=== PATIENT | female | born 1955 | race Caucasian/White ===

== ENCOUNTER 2016-10-04 21:52 | Emergency (ER) | payer OTHER ==
[~2016-10-04] VITALS: Ht 162.6 cm; Wt 81.6 kg
[~2016-10-04 21:52] MED LIST: CITA20TA5 PO; CYCL10TA2 PO; HYDR-2672 PO; HYDR-2762 PO; HYDR-2868 PO; HYDR25TA PO; METH-37 PO; NAPR500T8 PO; OMEP1CAP24 PO; OMEP20CA9 PO; TIZA4TAB PO
[2016-10-04] MEDS ORDERED: SMZ/TMP 800/160MG TABLET. PO ONE (23:45)
[2016-10-05] MEDS ORDERED: SULF1TAB24 PO (00:02)
--- NOTE | 2016-10-05 00:02 | PHYS DOC ---
Past Medical History Past Medical History: Bronchitis, Depression, GERD, Other Additional Past Medical Histor: back problems, CATARACTS, ULCERS, DDD Past Surgical History: Appendectomy, Hysterectomy, Other Additional Past Surgical Histo: Carpal tunnel, D&C, left foot surgery Alcohol Use: None Drug Use: None Adult General Chief Complaint Chief Complaint: LOWEREXTREMITY INJURY HPI HPI Patient is a 60 year old female who presents to the ER today secondary to redness and swelling to her left lower extremity. Patient reports on Wednesday her grandson jumped on her foot and she reports that he was having discomfort in that area. Patient reports approximately one day after the injury she noticed redness and streaking in her left pretibial region. Patient denies any other symptomatology at this time. Patient has any fevers shaking chills nausea vomiting diarrhea. Patient reports she has no history of hypertension diabetes liver longer kidney problems. Patient does not smoke or drink. Patient reports she is allergic to penicillin and Neosporin. Patient's physical exam was significant for redness and warmth and tenderness to her pretibial region. There was no bony deformity. There was no opening in the skin that was obvious. There was no lymphangitic streaking. There was no inguinal lymphadenopathy. Patient had x-ray of her left leg which revealed no acute fracture. Patient's labs were all within normal limits. This is a 60-year-old female who presents with an early cellulitis to her left lower history. Patient will be started on Bactrim DS L and will have her follow up with Dr. Franz in 2 days for reevaluation. Patient was instructed to return to the ER if she has any fevers or if she has streaking up her leg. Review of Systems Review of Systems Constitutional: Denies fever or chills [] Eyes: Denies change in visual acuity, redness, or eye pain [] All other review systems are negative except as documented in the history of present illness portion. Current Medications Current Medications Current Medications Medications (Trade) Dose Ordered Sig/Dione Start Time Stop Time Status Last Admin Dose Admin Trimethoprim/ Sulfamethoxazole (Bactrim Ds) 2 tab 1X ONCE 10/04/16 23:45 10/04/16 23:46 DC Allergies Allergies Allergies Coded Allergies Type Severity Reaction Last Updated Verified Penicillins Allergy Intermediate rash 07/15/15 Yes bacitracin Allergy Intermediate 11/30/15 Yes bacitracin zinc Allergy Intermediate 07/15/15 Yes morphine Allergy Intermediate rash 07/15/15 Yes neomycin sulfate Allergy Intermediate 07/15/15 Yes polymyxin B Allergy Intermediate 07/15/15 Yes Physical Exam Physical Exam Constitutional: Well developed, well nourished, no acute distress, non-toxic appearance. [] HENT: Normocephalic, atraumatic, bilateral external ears normal, oropharynx moist, no oral exudates, nose normal. [] Eyes: PERRLA, EOMI, conjunctiva normal, no discharge. [] Neck: Normal range of motion, no tenderness, supple, no stridor. [] Cardiovascular:Heart rate regular rhythm, no murmur [] Lungs & Thorax: Bilateral breath sounds clear to auscultation [] Abdomen: Bowel sounds normal, soft, no tenderness, no masses, no pulsatile masses. [] Skin: Warm, dry, no erythema, no rash. [] Back: No tenderness, no CVA tenderness. [] Extremities: See above Neurologic: Alert and oriented X 3, normal motor function, normal sensory function, no focal deficits noted. [] Psychologic: Affect normal, judgement normal, mood normal. [] Current Patient Data Vital Signs Vital Signs Date Time Temp Pulse Resp B/P Pulse Ox O2 Delivery O2 Flow Rate FiO2 10/04/16 23:09 97.7 95 16 165/84 98 97.7 10/04/16 23:06 Room Air EKG EKG [] Radiology/Procedures Radiology/Procedures [] Course & Med Decision Making Course & Med Decision Making Pertinent Labs and Imaging studies reviewed. (See chart for details) [] Dragon Disclaimer Dragon Disclaimer This electronic medical record was generated, in whole or in part, using a voice recognition dictation system. Departure Departure Impression: Primary Impression: Superficial bruising of lower leg Additional Impression: Cellulitis of leg Disposition: HOME, SELF-CARE Condition: IMPROVED Referrals: SHANNAN FRANZ MD (PCP) Patient Instructions: Cellulitis Scripts Sulfamethoxazole/Trimethoprim (Bactrim Ds Tablet)1 Each Tablet2 Tab PO BID 10 Days Prov:KYLER TRUONG MD 10/05/16 Problem Qualifiers KYLER TRUONG MD Oct 05, 2016 00:02
[2016-10-05 00:11] LABS: HEMATOCRIT 36.3 % (36.0-47.0); HEMOGLOBIN 11.8 g/dL (12.0-15.5); RED BLOOD COUNT 4.02 x10^6/uL (3.50-5.40); WHITE BLOOD COUNT 10.9 x10^3/uL (4.0-11.0)
[2016-10-05 00:19] LABS: GFR 56.2; POTASSIUM 3.5 mmol/L (3.5-5.1)
[2016-10-05 00:29] VITALS: BP 159/82
--- NOTE | 2016-10-05 07:13 | RAD ---
Left tibia and fibula, 2 views, 10/04/2016: History: Trauma, cellulitis No fracture or destructive bony lesion is seen. There is mild subcutaneous edema. IMPRESSION: No acute bony abnormality is detected.
== END 2016-10-05 00:30 | disposition home or self-care (01) ==
LOC: ER 21:52
DX: S80.12XA Contusion of left lower leg, initial encounter (principal); L03.116 Cellulitis of left lower limb; K21.9 Gastro-esophageal reflux disease without esophagitis; F32.9 Major depressive disorder, single episode, unspecified; Z88.1 Allergy status to other antibiotic agents; Z88.5 Allergy status to narcotic agent; Z88.0 Allergy status to penicillin; X58.XXXA Exposure to other specified factors, initial encounter; Y93.89 Activity, other specified; Y92.89 Other specified places as the place of occurrence of the external cause; Y99.8 Other external cause status
CPT/HCPCS: 36415; 73590; 80048; 85027; 99285-25

== ENCOUNTER → 2016-11-18 | Outpatient (CLI) | payer OTHER ==
[~2016-11-18] MED LIST changes: +SULF1TAB24 PO
[2016-11-18 13:09] LABS: BASO # 0.1 x10^3/uL (0.0-0.2); BASO % 1 % (0-3); EOS % 6 % (0-3); HEMATOCRIT 35.9 % (36.0-47.0); HEMOGLOBIN 11.9 g/dL (12.0-15.5); LYMPH # 2.5 x10^3/uL (1.0-4.8); LYMPH % 24 % (24-48); MEAN CORPUSCULAR HEMOGLOBIN 30 pg (25-35); MEAN CORPUSCULAR HGB CONC 33 g/dL (31-37); MEAN CORPUSCULAR VOLUME 91 fL (79-100); MONO % 7 % (0-9); NEUT % 64 % (31-73); PLATELET COUNT 288 x10^3/uL (140-400); RED BLOOD COUNT 3.96 x10^6/uL (3.50-5.40); RED CELL DISTRIBUTION WIDTH 14.2 % (11.5-14.5); WHITE BLOOD COUNT 10.7 x10^3/uL (4.0-11.0)
[2016-11-18 13:14] LABS: CALCIUM 9.1 mg/dL (8.5-10.1); GFR 56.2; POTASSIUM 4.8 mmol/L (3.5-5.1)
== END | disposition home or self-care (01) ==
LOC: LAB 12:48
PROVIDERS: ATTEND Family Medicine
DX: M79.605 Pain in left leg (principal)
CPT/HCPCS: 36415; 80048; 85027; 85651

== ENCOUNTER → 2016-11-19 | Outpatient (CLI) | payer OTHER ==
--- NOTE | 2016-11-19 16:25 | RAD ---
CT left lower extremity without intravenous contrast History: Pain left lower leg, cellulitis. Comparison: Left tibia and fibula radiographs 10/04/2016. Technique: Noncontrast CT of the left lower leg from the knee through the ankle was performed. Axial, sagittal, coronal reconstructions were obtained. One or more of the following individualized dose reduction techniques were utilized for the study: Automated exposure control Adjustment of mA and/or kV according to patient's size Use of iterative reconstruction technique. Findings: No acute fracture or acute osseous abnormality is identified. There is anterior subcutaneous soft tissue swelling of the mid and distal thirds of the left lower leg. There is a small well-corticated ossific density adjacent to the medial malleolus, which could be accessory ossicle versus old avulsion fracture. Impression: 1. No acute osseous abnormality identified. 2. Anterior soft tissue swelling of the lower leg.
== END | disposition home or self-care (01) ==
LOC: CT 12:33
PROVIDERS: ATTEND Family Medicine
DX: M79.605 Pain in left leg (principal); M79.89 Other specified soft tissue disorders
CPT/HCPCS: 73700

== ENCOUNTER 2018-11-11 14:04 | Emergency (ER) | payer SELFPAY ==
[~2018-11-11] VITALS: Ht 162.6 cm; Wt 99.8 kg
[~2018-11-11 14:04] MED LIST changes: -CITA20TA5 PO; +CITA20TA6 PO; -HYDR-2672 PO; -HYDR-2762 PO; +HYDR-2765 PO; +HYDR-2769 PO; +OMEP20CA10 PO; -OMEP20CA9 PO
[2018-11-11 14:10] VITALS: BP 161/83
[2018-11-11] MEDS ORDERED: IPRATRPIUM/ALBUTEROL 0.5/2.5MG 3 ML NEBU. NEB ONE (14:45)
[2018-11-11] MEDS ORDERED: CETIRIZINE HCL 10 MG TABLET. PO STA (14:46)
[2018-11-11] MEDS ORDERED: predniSONE 20 MG TABLET PO ONE (15:00)
[2018-11-11] MEDS ORDERED: HYDROcodon/APAP 7.5/325MG ORAL 15 ML SOLUTION PO ONE (15:00)
[2018-11-11 15:06] LABS: INFLUENZA A PATIENT NEGATIVE (NEGATIVE); INFLUENZA B PATIENT NEGATIVE (NEGATIVE)
--- NOTE | 2018-11-11 15:08 | RAD ---
Chest radiograph 11/11/2018 2:46 PM INDICATION: Cough for 3 weeks COMPARISON: July 15, 2015 TECHNIQUE: Frontal and lateral views of the chest are provided. FINDINGS: The cardiomediastinal silhouette is within normal limits. There are no pleural effusions. There is no pulmonary vascular congestion. There is no pneumothorax. There is increased patchy density at the lateral left lung base which may represent subsegmental atelectasis versus infiltrate. No significant osseous abnormality is identified. IMPRESSION: Patchy density at the lateral left lung base may represent subsegmental atelectasis versus infiltrate. Electronically signed by: Cristel Diggs MD (11/11/2018 3:05 PM) [id number]
--- NOTE | 2018-11-11 15:49 | PHYS DOC ---
Past Medical History Past Medical History: Bronchitis, Depression, GERD, Other Additional Past Medical Histor: back problems, CATARACTS, ULCERS, DDD Past Surgical History: Appendectomy, Hysterectomy, Other Additional Past Surgical Histo: Carpal tunnel, D&C, left foot surgery Alcohol Use: None Drug Use: None Adult General Chief Complaint Chief Complaint: COUGH HPI HPI Patient is a 62 year old female with history of bronchitis who presents to the ED today complaining of cough productive in nature for the last 3 with weeks. Patient states her ribs hurt when coughing especially on the left side. Patient states the last time she had same symptoms she had bronchitis. Denies any history of smoking. Denies any fever. Denies any active shortness of breath but she states when she gets into coughing spits she becomes short of air. Should like to be checked for pneumonia. Review of Systems Review of Systems Constitutional: Denies fever or chills [] Eyes: Denies change in visual acuity, redness, or eye pain [] HENT: Denies nasal congestion or sore throat [] Respiratory: Reports cough and intermittent episodes of shortness of breath during coughing spits Cardiovascular: No additional information not addressed in HPI [] GI: Denies abdominal pain, nausea, vomiting, bloody stools or diarrhea [] : Denies dysuria or hematuria [] Musculoskeletal: Denies back pain or joint pain [] Integument: Denies rash or skin lesions [] Neurologic: Denies headache, focal weakness or sensory changes [] All other systems were reviewed and found to be within normal limits, except as documented in this note. Current Medications Current Medications Current Medications Medications (Trade) Dose Ordered Sig/Dione Start Time Stop Time Status Last Admin Dose Admin Acetaminophen/ Hydrocodone Bitart (Lortab 7.5-325/ 15ml Oral Solution) 15 ml 1X ONCE 11/11/18 15:00 11/11/18 15:01 DC 11/11/18 15:10 15 ML Albuterol/ Ipratropium (Duoneb) 3 ml 1X ONCE 11/11/18 14:45 11/11/18 14:46 DC 11/11/18 14:54 3 ML Cetirizine HCl (ZyrTEC) 10 mg 1X STAT 11/11/18 14:46 11/11/18 14:58 DC 11/11/18 15:10 10 MG Prednisone (Prednisone) 60 mg 1X ONCE 11/11/18 15:00 11/11/18 15:01 DC 11/11/18 15:09 60 MG Allergies Allergies Allergies Coded Allergies Type Severity Reaction Last Updated Verified Penicillins Allergy Intermediate rash 07/15/15 Yes bacitracin Allergy Intermediate 07/15/15 Yes bacitracin zinc Allergy Intermediate 07/15/15 Yes morphine Allergy Intermediate rash 07/15/15 Yes neomycin sulfate Allergy Intermediate 07/15/15 Yes polymyxin B Allergy Intermediate 07/15/15 Yes Physical Exam Physical Exam Constitutional: Well developed, well nourished, no acute distress, non-toxic appearance. [] HENT: Normocephalic, atraumatic, bilateral external ears normal, oropharynx moist, no oral exudates, nose normal. [] Eyes: PERRLA, EOMI, conjunctiva normal, no discharge. [] Neck: Normal range of motion, no tenderness, supple, no stridor. [] Cardiovascular:Heart rate regular rhythm, no murmur [] Lungs & Thorax: Patient is actively coughing, diminished lung sounds to the left as well as right lower lung bases. No wheezing Abdomen: Bowel sounds normal, soft, no tenderness, no masses, no pulsatile masses. [] Skin: Warm, dry, no erythema, no rash. [] Back: No tenderness, no CVA tenderness. [] Extremities: No tenderness, no cyanosis, no clubbing, ROM intact, no edema. [] Neurologic: Alert and oriented X 3, normal motor function, normal sensory function, no focal deficits noted. [] Psychologic: Affect normal, judgement normal, mood normal. [] Current Patient Data Vital Signs Vital Signs Date Time Temp Pulse Resp B/P (MAP) Pulse Ox O2 Delivery O2 Flow Rate FiO2 11/11/18 14:56 98 Room Air 11/11/18 14:10 97.7 90 17 161/83 (109) 97.7 Lab Values Laboratory Tests Test 11/11/18 14:30 Influenza Type A Antigen Negative (NEGATIVE) Influenza Type B Antigen Negative (NEGATIVE) EKG EKG [] Radiology/Procedures Radiology/Procedures [] Course & Med Decision Making Course & Med Decision Making Pertinent Labs and Imaging studies reviewed. (See chart for details) This is a 62-year-old female patient presenting to the ED today with a productive cough for 3 weeks. Chest x-ray interpreted by radiologist was suspicious for left lower lobe infiltrate. Patient was discharged on doxycycline. Follow-up with PCP in the course of next week. Instructed to return to the ED at any point symptoms worsen. Olive Disclaimer Olive Disclaimer This electronic medical record was generated, in whole or in part, using a voice recognition dictation system. Departure Departure Impression: Primary Impression: Left lower lobe pulmonary infiltrate Disposition: HOME, SELF-CARE Condition: STABLE Referrals: SHANNAN FRANZ MD (PCP) follow up next week Patient Instructions: Pneumonia, Adult Additional Instructions: You were elevated in the emergency room your chest x-ray is suspicious of left lower lobe pneumonia. We put you on antibiotics, ensure you complete them. Use the rest of the prescribed medications as ordered. Scripts Albuterol Sulfate (VENTOLIN HFA INHALER) 18 Gm Hfa.aer.ad 2 PUFF INH Q4HRS for FOR ASTHMA, #1 INHALER 0 Refills Prov: YOLANDA BOURNE APRN 11/11/18 Hydrocodone/Chlorphen Polis (HYDROCODONE-CHLORPHENIRAM SUSP) 5 Ml Diana.er.12h 5 ML PO PRN Q12HR PRN for COUGH, #100 ML 0 Refills Prov: YOLANDA BOURNE APRN 11/11/18 Doxycycline Hyclate (DOXYCYCLINE HYCLATE) 100 Mg Tablet. 1 TAB PO BID, #14 TAB Prov: YOLANDA BOURNE APRN 11/11/18 YOLANDA BOURNE APRN Nov 11, 2018 15:49
[2018-11-11] MEDS ORDERED: HYDR5SUS PO (16:03)
[2018-11-11] MEDS ORDERED: DOXY100T9 PO (16:03)
[2018-11-11] MEDS ORDERED: VENTOLIN HFA18 GM INH (16:03)
== END 2018-11-11 16:15 | disposition home or self-care (01) ==
LOC: ER 14:04
DX: R91.8 Other nonspecific abnormal finding of lung field (principal); K21.9 Gastro-esophageal reflux disease without esophagitis; F32.9 Major depressive disorder, single episode, unspecified; Z90.89 Acquired absence of other organs; Z90.710 Acquired absence of both cervix and uterus; Z88.0 Allergy status to penicillin; Z88.1 Allergy status to other antibiotic agents; Z88.5 Allergy status to narcotic agent
CPT/HCPCS: 71046; 87804; 94640; 99284; J7512; J7620